=== PATIENT | female | born 1960 | race Caucasian/White ===

== ENCOUNTER 2017-02-24 09:06 | Inpatient (IN) | payer BC, MEDICARE ==
[~2017-02-24] VITALS: Ht 160 cm; Wt 74.8 kg
[2017-02-24] MEDS ORDERED: SODIUM CHLORIDE 0.9% 1,000 ML IV ONE (09:16)
[2017-02-24] MEDS ORDERED: SODIUM CHLORIDE 0.9% 1,000ML IVBOLUS ONE (09:30)
[2017-02-24] MEDS ORDERED: AMPICILLIN/SULBACTAM 3 GM in SODIUM CHLORIDE 0.9% 100 ML IVPB ONE (09:30)
[2017-02-24] MEDS ORDERED: MORPHINE SULFATE 4 MG/ML, 1ML IV PRN (09:30)
[2017-02-24] MEDS ORDERED: ONDANSETRON 2MG/ML, 2ML IVPush ONE (09:30)
[2017-02-24] MEDS ORDERED: SODIUM CHLORIDE FLUSH 10ML SYR IVF ONE (09:30)
[2017-02-24] MEDS ORDERED: TACR1CAP4 PO (09:32)
[2017-02-24] MEDS ORDERED: MYCO360T PO (09:32)
[2017-02-24] MEDS ORDERED: PRED5TAB PO (09:32)
[2017-02-24] MEDS ORDERED: ERGO2000 PO (09:32)
[2017-02-24] MEDS ORDERED: SIMV20TA PO (09:32)
[2017-02-24] MEDS ORDERED: PARI1CAP3 PO (09:32)
[2017-02-24] MEDS ORDERED: IMIP50TA PO (09:32)
[2017-02-24] MEDS ORDERED: GABA-827 PO (09:32)
[2017-02-24] MEDS ORDERED: DULO60CA7 PO (09:32)
[2017-02-24] MEDS ORDERED: ASCO100T5 PO (09:32)
[2017-02-24] MEDS ORDERED: ASPI-496 PO (09:32)
[2017-02-24 10:15] LABS: ASPARTATE AMINO TRANSFERASE 14 U/L (15-37); BLOOD UREA NITROGEN 58 mg/dL (7-18)
[2017-02-24] MEDS ORDERED: HYDROcodone/APAP 5/325 TABLET PO PRN (12:00)
[2017-02-24] MEDS ORDERED: VANCOMYCIN 1,300 MG in SODIUM CHLORIDE 0.9% 250 ML IV ONE (12:00)
[2017-02-24] MEDS ORDERED: ACETAMINOPHEN 325 MG TABLET PO PRN (12:00)
[2017-02-24] MEDS ORDERED: HEPARIN 5,000 UNITS/ML, 1ML SQ SCH (12:00)
[2017-02-24] MEDS ORDERED: BISACODYL 10 MG SUPP PR PRN (12:00)
[2017-02-24] MEDS ORDERED: DOCUSATE 100 MG CAPSULE PO PRN (12:00)
[2017-02-24] MEDS ORDERED: VANCOMYCIN PER PHARMACY MC ONE (12:00)
[2017-02-24] MEDS ORDERED: MORPHINE SULFATE 4 MG/ML, 1ML IVPush PRN (12:00)
[2017-02-24] MEDS ORDERED: ONDANSETRON 2MG/ML, 2ML IVP PRN (12:00)
[2017-02-24] MEDS ORDERED: POLYETHYLENE GLYCOL 17 GM PACKET PO PRN (12:00)
[2017-02-24] MEDS ORDERED: LABETALOL 5MG/ML, 20ML IV PRN ×2 (12:00→21:00)
[2017-02-24] MEDS ORDERED: SODIUM CHLORIDE 0.9% 1,000 ML IV SCH (13:00)
[2017-02-24 13:30] VITALS: BP 165/99
[2017-02-24] MEDS: TACROLIMUS 1 MG CAPSULE PO SCH (14:57)
[2017-02-24] MEDS: LACTATED RINGERS 1,000 ML IV SCH (15:01)
[2017-02-24] MEDS: ERGOCALCIFEROL 50,000 UNIT CAPSULE PO SCH (15:54)
[2017-02-24 17:58] LABS: PATH.CAST-FLAG NOT PRESENT; SPERM-FLAG NOT PRESENT; SRC-FLAG NOT PRESENT; XTAL-FLAG NOT PRESENT; YLC-FLAG NOT PRESENT
[2017-02-24 20:30] VITALS: BP 198/100
[2017-02-24] MEDS ORDERED: BUPIVACAINE/PF 0.5% ONE (20:48)
[2017-02-24] MEDS ORDERED: FENTANYL PF 100 MCG/2ML ONE (20:51)
[2017-02-24] MEDS ORDERED: PROPOFOL 10 MG/ML, 20ML ONE (20:52)
[2017-02-24] MEDS ORDERED: PROMETHAZINE 25 MG/ML, 1ML IV PRN (21:00)
[2017-02-24] MEDS ORDERED: EPHEDRINE 50 MG/ML, 1ML IVPush PRN (21:00)
[2017-02-24] MEDS ORDERED: OXYcodone 5 MG/5 ML ORAL.SOL UDC PO PRN (21:00)
[2017-02-24] MEDS ORDERED: DAPTOMYCIN 400 MG in SODIUM CHLORIDE 0.9% 100 ML IVPB SCH (21:00)
[2017-02-24] MEDS ORDERED: FENTANYL PF 100 MCG/2ML IV PRN (21:00)
[2017-02-24] MEDS ORDERED: SIMVASTATIN 20 MG TABLET PO SCH (21:00)
[2017-02-24] MEDS ORDERED: HYDROmorphone 1 MG/ML, 1ML IV PRN (21:00)
[2017-02-24] MEDS ORDERED: hydrALAzine 20 MG/ML, 1ML IV PRN (21:00)
[2017-02-24] MEDS ORDERED: HYDROcodone/APAP 7.5-325MG/15ML UDC PO PRN (21:00)
[2017-02-24] MEDS: SODIUM CHLORIDE FLUSH 10ML SYR IVF SCH (21:00)
[2017-02-24] MEDS ORDERED: ONDANSETRON 2MG/ML, 2ML IVPush PRN (21:00)
[2017-02-24] MEDS ORDERED: BUPIVACAINE/PF 0.5% INFIL ONE (21:09)
[2017-02-24] MEDS ORDERED: LABETALOL 5MG/ML, 20ML ONE (21:32)
[2017-02-24] MEDS: GABAPENTIN 300 MG CAPSULE PO SCH (23:35)
[2017-02-24] MEDS: PIPERACILLIN/TAZO/PMX 2.25GM 50 ML IV SCH (23:37)
[2017-02-25] VITALS (11 sets, daily range): BP systolic 122–157; BP diastolic 70–91
[2017-02-25] MEDS: TACROLIMUS 1 MG CAPSULE PO SCH ×2 (03:17→15:00)
[2017-02-25] MEDS: LACTATED RINGERS 1,000 ML IV SCH ×3 (03:18→20:30)
[2017-02-25] MEDS: PIPERACILLIN/TAZO/PMX 2.25GM 50 ML IV SCH ×4 (05:04→23:19)
[2017-02-25 05:05] LABS: BLOOD UREA NITROGEN 57 mg/dL (7-18)
[2017-02-25] MEDS: PARICALCITOL 1 MCG CAPSULE PO SCH (09:00)
[2017-02-25] MEDS: IMIPRAMINE 50 MG TABLET PO SCH (09:00)
[2017-02-25] MEDS: DULOXETINE 30 MG CAPSULE.DR PO SCH (09:45)
[2017-02-25] MEDS: ASPIRIN 81 MG TABLET EC PO SCH (09:46)
[2017-02-25] MEDS: SODIUM CHLORIDE FLUSH 10ML SYR IVF SCH ×2 (09:50→20:56)
[2017-02-25] MEDS: LOPERAMIDE 2 MG CAPSULE PO PRN (20:54)
[2017-02-25] MEDS: GABAPENTIN 300 MG CAPSULE PO SCH (20:55)
[2017-02-26 02:03] VITALS: BP 145/84
[2017-02-26] MEDS: TACROLIMUS 1 MG CAPSULE PO SCH ×2 (03:00→15:00)
[2017-02-26] MEDS: PIPERACILLIN/TAZO/PMX 2.25GM 50 ML IV SCH ×4 (04:37→22:54)
[2017-02-26 05:14] LABS: BLOOD UREA NITROGEN 50 mg/dL (7-18)
[2017-02-26 05:18] LABS: ASPARTATE AMINO TRANSFERASE 18 U/L (15-37)
[2017-02-26 07:40] VITALS: BP 147/90
[2017-02-26] MEDS: ASPIRIN 81 MG TABLET EC PO SCH (09:00)
[2017-02-26] MEDS: PARICALCITOL 1 MCG CAPSULE PO SCH (09:00)
[2017-02-26] MEDS: SODIUM CHLORIDE FLUSH 10ML SYR IVF SCH ×2 (09:31→21:00)
[2017-02-26] MEDS: SODIUM BICARBONATE 650 MG TABLET PO SCH ×3 (09:31→17:30)
[2017-02-26] MEDS: LACTATED RINGERS 1,000 ML IV SCH ×2 (09:31→21:00)
[2017-02-26] MEDS: DULOXETINE 30 MG CAPSULE.DR PO SCH (09:32)
[2017-02-26] MEDS ORDERED: FENTANYL PF 100 MCG/2ML ONE (10:27)
[2017-02-26] MEDS ORDERED: NALOXONE 1 MG/ML, 2ML ONE (10:27)
[2017-02-26] MEDS ORDERED: FLUMAZENIL 0.1 MG/1 ML, 5ML ONE (10:27)
[2017-02-26] MEDS ORDERED: MIDAZOLAM 1 MG/ML, 5ML ONE (10:27)
[2017-02-26 14:00] VITALS: BP 173/94
[2017-02-26] MEDS: LOPERAMIDE 2 MG CAPSULE PO PRN ×2 (14:08→22:54)
[2017-02-26 20:00] VITALS: BP 172/101
[2017-02-26] MEDS: IMIPRAMINE 50 MG TABLET PO SCH (21:00)
[2017-02-26] MEDS: GABAPENTIN 300 MG CAPSULE PO SCH (21:04)
[2017-02-27] MEDS: TACROLIMUS 1 MG CAPSULE PO SCH ×2 (03:46→14:28)
[2017-02-27] MEDS: PIPERACILLIN/TAZO/PMX 2.25GM 50 ML IV SCH ×2 (03:47→12:20)
[2017-02-27 03:56] VITALS: BP 155/99
[2017-02-27 05:20] LABS: BLOOD UREA NITROGEN 53 mg/dL (7-18)
[2017-02-27] MEDS: ASPIRIN 81 MG TABLET EC PO SCH (07:50)
[2017-02-27] MEDS: PARICALCITOL 1 MCG CAPSULE PO SCH (07:50)
[2017-02-27] MEDS: LACTATED RINGERS 1,000 ML IV SCH ×2 (07:51→17:15)
[2017-02-27] MEDS: SODIUM CHLORIDE FLUSH 10ML SYR IVF SCH ×2 (07:51→20:37)
[2017-02-27] MEDS: SODIUM BICARBONATE 650 MG TABLET PO SCH ×3 (07:51→17:15)
[2017-02-27] MEDS: DULOXETINE 30 MG CAPSULE.DR PO SCH (07:51)
[2017-02-27 08:16] VITALS: BP 165/95
[2017-02-27 12:52] VITALS: BP 170/109
[2017-02-27 19:15] VITALS: BP 174/105
[2017-02-27] MEDS ORDERED: LABETALOL 5MG/ML, 20ML IV PRN (20:15)
[2017-02-27 20:31] VITALS: BP 184/107
[2017-02-27] MEDS: GABAPENTIN 300 MG CAPSULE PO SCH (20:36)
[2017-02-27] MEDS: LABETALOL 20 MG/4 ML IV PRN ×2 (20:37→20:53)
[2017-02-27] MEDS: IMIPRAMINE 50 MG TABLET PO SCH (20:37)
[2017-02-27 22:23] VITALS: BP 161/93
[2017-02-28] MEDS: TACROLIMUS 1 MG CAPSULE PO SCH ×2 (03:00→15:00)
[2017-02-28 03:11] VITALS: BP 156/100
[2017-02-28] MEDS: LACTATED RINGERS 1,000 ML IV SCH ×2 (03:14→15:21)
[2017-02-28 04:43] LABS: BLOOD UREA NITROGEN 61 mg/dL (7-18)
[2017-02-28] MEDS: SODIUM BICARBONATE 650 MG TABLET PO SCH ×3 (08:00→16:36)
[2017-02-28 08:13] VITALS: BP 151/94
[2017-02-28] MEDS: ASPIRIN 81 MG TABLET EC PO SCH (09:00)
[2017-02-28] MEDS: IMIPRAMINE 50 MG TABLET PO SCH (09:00)
[2017-02-28] MEDS: PARICALCITOL 1 MCG CAPSULE PO SCH (09:00)
[2017-02-28] MEDS: DULOXETINE 30 MG CAPSULE.DR PO SCH (09:00)
[2017-02-28] MEDS: SODIUM CHLORIDE FLUSH 10ML SYR IVF SCH ×2 (09:00→21:26)
[2017-02-28] MEDS ORDERED: MIDAZOLAM 1 MG/ML, 5ML ONE (10:42)
[2017-02-28] MEDS ORDERED: FENTANYL PF 100 MCG/2ML ONE (10:43)
[2017-02-28 14:58] VITALS: BP 161/107
[2017-02-28] MEDS: DAPTOMYCIN 400 MG in SODIUM CHLORIDE 0.9% 100 ML IVPB SCH (16:36)
[2017-02-28] MEDS: LABETALOL 20 MG/4 ML IV PRN (16:36)
[2017-02-28 19:12] VITALS: BP 142/85
[2017-02-28] MEDS: GABAPENTIN 300 MG CAPSULE PO SCH (21:26)
[2017-03-01] MEDS: TACROLIMUS 1 MG CAPSULE PO SCH ×2 (03:00→15:00)
[2017-03-01] MEDS: LACTATED RINGERS 1,000 ML IV SCH ×3 (03:12→21:15)
[2017-03-01 03:15] VITALS: BP 159/99
[2017-03-01 04:59] LABS: BLOOD UREA NITROGEN 68 mg/dL (7-18)
[2017-03-01 05:02] LABS: ASPARTATE AMINO TRANSFERASE 10 U/L (15-37)
[2017-03-01] MEDS: PARICALCITOL 1 MCG CAPSULE PO SCH (09:00)
[2017-03-01] MEDS: IMIPRAMINE 50 MG TABLET PO SCH (09:00)
[2017-03-01] MEDS: SODIUM CHLORIDE FLUSH 10ML SYR IVF SCH ×2 (09:00→21:15)
[2017-03-01 09:10] VITALS: BP 154/90
[2017-03-01] MEDS: ASPIRIN 81 MG TABLET EC PO SCH (09:57)
[2017-03-01] MEDS: DULOXETINE 30 MG CAPSULE.DR PO SCH (09:57)
[2017-03-01] MEDS: SODIUM BICARBONATE 650 MG TABLET PO SCH ×2 (09:57→21:16)
[2017-03-01 14:09] VITALS: BP 148/91
[2017-03-01 19:44] VITALS: BP 173/101
[2017-03-01] MEDS: GABAPENTIN 300 MG CAPSULE PO SCH (21:16)
[2017-03-01 21:36] VITALS: BP 188/108
[2017-03-01] MEDS: LABETALOL 20 MG/4 ML IV PRN (21:37)
[2017-03-01 22:50] VITALS: BP 141/86
[2017-03-02 04:04] VITALS: BP 170/97
[2017-03-02] MEDS: TACROLIMUS 1 MG CAPSULE PO SCH ×2 (04:16→17:10)
[2017-03-02] MEDS: LACTATED RINGERS 1,000 ML IV SCH (06:13)
[2017-03-02] MEDS ORDERED: LACTATED RINGERS 1,000 ML IV SCH (07:00)
[2017-03-02 08:00] VITALS: BP 151/97
[2017-03-02] MEDS ORDERED: METOPROLOL SUCCINATE 25 MG TAB.ER.24H PO SCH (08:00)
[2017-03-02] MEDS ORDERED: LISINOPRIL 20 MG TABLET PO SCH (09:00)
[2017-03-02] MEDS: ASPIRIN 81 MG TABLET EC PO SCH (09:22)
[2017-03-02] MEDS: SODIUM CHLORIDE FLUSH 10ML SYR IVF SCH ×2 (09:22→22:11)
[2017-03-02] MEDS: DULOXETINE 30 MG CAPSULE.DR PO SCH (09:23)
[2017-03-02] MEDS: PARICALCITOL 1 MCG CAPSULE PO SCH (09:24)
[2017-03-02] MEDS: SODIUM BICARBONATE 650 MG TABLET PO SCH ×2 (09:24→22:10)
[2017-03-02] MEDS: IMIPRAMINE 50 MG TABLET PO SCH (09:26)
[2017-03-02] MEDS: AMLODIPINE 5 MG TABLET PO SCH (12:02)
[2017-03-02 14:12] VITALS: BP 165/105
[2017-03-02] MEDS: DAPTOMYCIN 400 MG in SODIUM CHLORIDE 0.9% 100 ML IVPB SCH (15:24)
[2017-03-02 19:51] VITALS: BP 153/99
[2017-03-02] MEDS: GABAPENTIN 300 MG CAPSULE PO SCH (22:11)
[2017-03-03 01:57] VITALS: BP 155/99
[2017-03-03] MEDS: TACROLIMUS 1 MG CAPSULE PO SCH ×2 (05:00→21:00)
[2017-03-03 05:13] LABS: BLOOD UREA NITROGEN 69 mg/dL (7-18); C-REACTIVE PROTEIN, QUANT 0.35 mg/dL (0.02-0.49)
[2017-03-03 05:16] LABS: ASPARTATE AMINO TRANSFERASE 12 U/L (15-37)
[2017-03-03 06:44] VITALS: BP 156/94
[2017-03-03] MEDS: PARICALCITOL 1 MCG CAPSULE PO SCH (09:00)
[2017-03-03] MEDS: AMLODIPINE 5 MG TABLET PO SCH (09:36)
[2017-03-03] MEDS: SODIUM BICARBONATE 650 MG TABLET PO SCH ×2 (09:36→21:59)
[2017-03-03] MEDS: DULOXETINE 30 MG CAPSULE.DR PO SCH (09:37)
[2017-03-03] MEDS: ASPIRIN 81 MG TABLET EC PO SCH (09:37)
[2017-03-03] MEDS: ERGOCALCIFEROL 50,000 UNIT CAPSULE PO SCH (09:42)
[2017-03-03] MEDS: SODIUM CHLORIDE FLUSH 10ML SYR IVF SCH ×2 (09:43→22:00)
[2017-03-03 13:24] VITALS: BP 168/100
[2017-03-03 20:30] VITALS: BP 156/94
[2017-03-03 21:00] LABS: PATH.CAST-FLAG NOT PRESENT; SPERM-FLAG NOT PRESENT; SRC-FLAG NOT PRESENT; XTAL-FLAG NOT PRESENT; YLC-FLAG NOT PRESENT
[2017-03-03] MEDS: IMIPRAMINE 50 MG TABLET PO SCH (21:00)
[2017-03-03] MEDS: GABAPENTIN 300 MG CAPSULE PO SCH (21:59)
[2017-03-04 03:19] VITALS: BP 148/99
[2017-03-04 07:57] VITALS: BP 146/90
[2017-03-04 08:09] LABS: BLOOD UREA NITROGEN 79 mg/dL (7-18)
[2017-03-04] MEDS: AMLODIPINE 5 MG TABLET PO SCH (09:21)
[2017-03-04] MEDS: DULOXETINE 30 MG CAPSULE.DR PO SCH (09:22)
[2017-03-04] MEDS: SODIUM BICARBONATE 650 MG TABLET PO SCH ×2 (09:22→23:05)
[2017-03-04] MEDS: ASPIRIN 81 MG TABLET EC PO SCH (09:22)
[2017-03-04] MEDS: PARICALCITOL 1 MCG CAPSULE PO SCH (09:23)
[2017-03-04] MEDS: SODIUM CHLORIDE FLUSH 10ML SYR IVF SCH ×2 (09:23→23:07)
[2017-03-04] MEDS: TACROLIMUS 1 MG CAPSULE PO SCH ×2 (09:23→23:39)
[2017-03-04 13:12] VITALS: BP 155/94
[2017-03-04] MEDS ORDERED: ALBUMIN HUMAN 5% 3,000 ML IV ONE (13:30)
[2017-03-04] MEDS ORDERED: CALCIUM GLUCONATE 4.6 MEQ/10 ML IVPush ONE (13:30)
[2017-03-04] MEDS ORDERED: IMMUNE GLOBULIN IV ONE (14:00)
[2017-03-04 19:36] VITALS: BP 139/85
[2017-03-04] MEDS: DAPTOMYCIN 400 MG in SODIUM CHLORIDE 0.9% 100 ML IVPB SCH (20:11)
[2017-03-04] MEDS: GABAPENTIN 300 MG CAPSULE PO SCH (23:05)
[2017-03-04] MEDS: IMIPRAMINE 50 MG TABLET PO SCH (23:06)
[2017-03-05 02:48] VITALS: BP 146/89
[2017-03-05 07:31] VITALS: BP 162/100
[2017-03-05] MEDS: DULOXETINE 30 MG CAPSULE.DR PO SCH (08:29)
[2017-03-05] MEDS: ASPIRIN 81 MG TABLET EC PO SCH (08:30)
[2017-03-05] MEDS: AMLODIPINE 5 MG TABLET PO SCH (08:30)
[2017-03-05] MEDS: TACROLIMUS 1 MG CAPSULE PO SCH ×2 (08:31→21:28)
[2017-03-05] MEDS: SODIUM BICARBONATE 650 MG TABLET PO SCH ×2 (08:31→21:29)
[2017-03-05] MEDS: IMIPRAMINE 50 MG TABLET PO SCH (08:31)
[2017-03-05] MEDS: PARICALCITOL 1 MCG CAPSULE PO SCH (08:32)
[2017-03-05] MEDS: SODIUM CHLORIDE FLUSH 10ML SYR IVF SCH ×2 (08:35→21:00)
[2017-03-05 13:46] VITALS: BP 132/75
[2017-03-05] MEDS: GABAPENTIN 300 MG CAPSULE PO SCH (21:28)
[2017-03-05 22:43] VITALS: BP 152/90
[2017-03-06] VITALS (12 sets, daily range): BP systolic 145–158; BP diastolic 81–96
[2017-03-06 05:43] LABS: BLOOD UREA NITROGEN 75 mg/dL (7-18)
[2017-03-06] MEDS: AMLODIPINE 5 MG TABLET PO SCH (09:09)
[2017-03-06] MEDS: DULOXETINE 30 MG CAPSULE.DR PO SCH (09:09)
[2017-03-06] MEDS: TACROLIMUS 1 MG CAPSULE PO SCH ×2 (09:09→21:52)
[2017-03-06] MEDS: ASPIRIN 81 MG TABLET EC PO SCH (09:09)
[2017-03-06] MEDS: SODIUM BICARBONATE 650 MG TABLET PO SCH ×2 (09:09→22:00)
[2017-03-06] MEDS: PARICALCITOL 1 MCG CAPSULE PO SCH (09:11)
[2017-03-06] MEDS: SODIUM CHLORIDE FLUSH 10ML SYR IVF SCH ×2 (09:11→21:00)
[2017-03-06] MEDS ORDERED: ALBUMIN HUMAN 5% 2,000 ML IV ONE (09:30)
[2017-03-06] MEDS ORDERED: CALCIUM GLUCONATE 4.6 MEQ/10 ML IVPush ONE (09:30)
[2017-03-06] MEDS ORDERED: IMMUNE GLOBULIN IV ONE (10:30)
[2017-03-06] MEDS ORDERED: IMIPRAMINE 50 MG TABLET PO SCH (21:00)
[2017-03-06] MEDS: GABAPENTIN 300 MG CAPSULE PO SCH (21:53)
[2017-03-06] MEDS: IMIPRAMINE 25 MG TABLET PO SCH (22:01)
[2017-03-07 01:03] VITALS: BP 154/86
[2017-03-07 04:40] LABS: BLOOD UREA NITROGEN 73 mg/dL (7-18)
[2017-03-07 07:45] VITALS: BP 145/86
[2017-03-07] MEDS: TACROLIMUS 1 MG CAPSULE PO SCH ×2 (11:09→22:46)
[2017-03-07] MEDS: SODIUM BICARBONATE 650 MG TABLET PO SCH ×2 (11:09→22:44)
[2017-03-07] MEDS: ASPIRIN 81 MG TABLET EC PO SCH (11:09)
[2017-03-07] MEDS: AMLODIPINE 5 MG TABLET PO SCH (11:09)
[2017-03-07] MEDS: DULOXETINE 30 MG CAPSULE.DR PO SCH (11:09)
[2017-03-07] MEDS: PARICALCITOL 1 MCG CAPSULE PO SCH (11:09)
[2017-03-07] MEDS: SODIUM CHLORIDE FLUSH 10ML SYR IVF SCH ×2 (11:10→21:00)
[2017-03-07 15:36] VITALS: BP 160/87
[2017-03-07 19:39] VITALS: BP 155/90
[2017-03-07] MEDS: GABAPENTIN 300 MG CAPSULE PO SCH (22:45)
[2017-03-07] MEDS: IMIPRAMINE 25 MG TABLET PO SCH (22:47)
[2017-03-08] VITALS (11 sets, daily range): BP systolic 118–162; BP diastolic 77–170
[2017-03-08 06:19] LABS: BLOOD UREA NITROGEN 76 mg/dL (7-18)
[2017-03-08] MEDS: ASPIRIN 81 MG TABLET EC PO SCH (08:42)
[2017-03-08] MEDS: DULOXETINE 30 MG CAPSULE.DR PO SCH (08:42)
[2017-03-08] MEDS: SODIUM BICARBONATE 650 MG TABLET PO SCH ×2 (08:42→20:28)
[2017-03-08] MEDS: AMLODIPINE 5 MG TABLET PO SCH (08:42)
[2017-03-08] MEDS: PARICALCITOL 1 MCG CAPSULE PO SCH (08:43)
[2017-03-08] MEDS: TACROLIMUS 1 MG CAPSULE PO SCH ×2 (08:43→20:28)
[2017-03-08] MEDS: SODIUM CHLORIDE FLUSH 10ML SYR IVF SCH ×2 (08:44→20:38)
[2017-03-08] MEDS ORDERED: ALBUMIN HUMAN 5% 2,000 ML IV ONE (12:30)
[2017-03-08] MEDS ORDERED: CALCIUM GLUCONATE 4.6 MEQ/10 ML IVPush ONE (12:30)
[2017-03-08] MEDS ORDERED: SODI650T PO (14:13)
[2017-03-08] MEDS ORDERED: AMLO5TAB2 PO (14:13)
[2017-03-08] MEDS ORDERED: IMMUNE GLOBULIN IV ONE ×2 (15:30→16:30)
[2017-03-08] MEDS: GABAPENTIN 300 MG CAPSULE PO SCH (20:28)
[2017-03-08] MEDS: IMIPRAMINE 25 MG TABLET PO SCH (20:38)
[2017-03-09 00:06] LABS: ABSOLUTE CD 4 HELPER 333 /uL (359-1519); HEMATOCRIT 27.3 % (34.0-46.6); HEMOGLOBIN 9.1 g/dL (11.1-15.9); IMMATURE GRANULOCYTES 0 % (.); MCH 29.2 pg (26.6-33.0); MCHC 33.3 g/dL (31.5-35.7); MCV 88 fL (79-97); MONOCYTES 5 % (.); NEUTROPHILS 85 % (.); PLATELETS 210 x10E3/uL (150-379); RBC 3.12 x10E6/uL (3.77-5.28); RDW 16.2 % (12.3-15.4); WBC 9.4 x10E3/uL (3.4-10.8)
== END 2017-03-08 23:29 | disposition home or self-care (01) | DRG 617 ==
LOC: ED 11:12 → EDIP 12:00 → 3NW 12:53
PROVIDERS: ADMIT Hospitalist
PROC: 0Y6Q0Z2 Detachment at Left 1st Toe, Mid, Open Approach (ICD-10-PCS; principal; 2017-02-24 20:15)
PROC: 0TB13ZX Excision of Left Kidney, Percutaneous Approach, Diagnostic (ICD-10-PCS; 2017-02-26)
PROC: 0TB13ZX Excision of Left Kidney, Percutaneous Approach, Diagnostic (ICD-10-PCS; 2017-02-28)
PROC: 02HV33Z Insertion of Infusion Device into Superior Vena Cava, Percutaneous Approach (ICD-10-PCS; 2017-03-04)
PROC: B548ZZA Ultrasonography of Superior Vena Cava, Guidance (ICD-10-PCS; 2017-03-04)
PROC: 30233L1 Transfusion of Nonautologous Fresh Plasma into Peripheral Vein, Percutaneous Approach (ICD-10-PCS; 2017-03-06)
PROC: 30233L1 Transfusion of Nonautologous Fresh Plasma into Peripheral Vein, Percutaneous Approach (ICD-10-PCS; 2017-03-06)
PROC: 30233K1 Transfusion of Nonautologous Frozen Plasma into Peripheral Vein, Percutaneous Approach (ICD-10-PCS; 2017-03-08)
PROC: 30233K1 Transfusion of Nonautologous Frozen Plasma into Peripheral Vein, Percutaneous Approach (ICD-10-PCS; 2017-03-08)
PROC: 6A551Z3 Pheresis of Plasma, Multiple (ICD-10-PCS; 2017-03-08)
DX: E11.621 Type 2 diabetes mellitus with foot ulcer (principal); M86.172 Other acute osteomyelitis, left ankle and foot; E44.0 Moderate protein-calorie malnutrition; Z94.0 Kidney transplant status; Z94.83 Pancreas transplant status; N39.0 Urinary tract infection, site not specified; E87.2 Acidosis; T86.19 Other complication of kidney transplant; N13.30 Unspecified hydronephrosis; N17.9 Acute kidney failure, unspecified; E11.69 Type 2 diabetes mellitus with other specified complication; Z66 Do not resuscitate; K31.84 Gastroparesis; B95.62 Methicillin resistant Staphylococcus aureus infection as the cause of diseases classified elsewhere; N18.2 Chronic kidney disease, stage 2 (mild); K59.09 Other constipation; D63.1 Anemia in chronic kidney disease; D72.829 Elevated white blood cell count, unspecified; E11.22 Type 2 diabetes mellitus with diabetic chronic kidney disease; E11.43 Type 2 diabetes mellitus with diabetic autonomic (poly)neuropathy; E78.5 Hyperlipidemia, unspecified; F32.9 Major depressive disorder, single episode, unspecified; L08.9 Local infection of the skin and subcutaneous tissue, unspecified; R80.9 Proteinuria, unspecified; I12.9 Hypertensive chronic kidney disease with stage 1 through stage 4 chronic kidney disease, or unspecified chronic kidney disease; L97.519 Non-pressure chronic ulcer of other part of right foot with unspecified severity; L97.529 Non-pressure chronic ulcer of other part of left foot with unspecified severity; Y83.0 Surgical operation with transplant of whole organ as the cause of abnormal reaction of the patient, or of later complication, without mention of misadventure at the time of the procedure; R03.0 Elevated blood-pressure reading, without diagnosis of hypertension; Z87.440 Personal history of urinary (tract) infections; Z99.2 Dependence on renal dialysis; Z90.49 Acquired absence of other specified parts of digestive tract; Z98.42 Cataract extraction status, left eye; Z98.41 Cataract extraction status, right eye; Z80.9 Family history of malignant neoplasm, unspecified; Z68.29 Body mass index [BMI] 29.0-29.9, adult; Z88.8 Allergy status to other drugs, medicaments and biological substances
CPT/HCPCS: 36415; 36514; 36556; 50200; 70450; 71010; 76776; 76937; 77001; 77012; 80048; 80053; 80069; 80197; 81001; 82150; 82436; 82550; 82570; 83605; 83690; 83735; 83880; 84100; 84133; 84145; 84156; 84300; 85025; 85384; 85610; 85651; 85730; 86140; 86361; 86850; 86900; 87040; 87070; 87075; 87077; 87086; 87106; 87186; 87205; 87324; 88300; 93005; 93306; 93976; 96365; 96366; 96375; 99156; 99157; J0295; J0878; J1459; J2250; J2405; J2543; J2704; J2930; J3010; J3370; J3490; J7507; J7518; P9045; C1751; J0610; J1642; J2310; J7030; J7050; J7120; J7512; P9017

== ENCOUNTER 2017-03-11 17:46 | Inpatient (IN) | payer BC, MEDICARE ==
[~2017-03-11] VITALS: Ht 160 cm; Wt 71.8 kg
[~2017-03-11 17:46] MED LIST: AMLO5TAB2 PO; ASCO100T5 PO; ASPI-496 PO; DULO60CA7 PO; ERGO2000 PO; GABA-827 PO; IMIP50TA PO; MYCO360T PO; PARI1CAP3 PO; PRED5TAB PO; SIMV20TA PO; SODI650T PO; TACR1CAP4 PO
[2017-03-11 18:44] LABS: BLOOD UREA NITROGEN 55 mg/dL (7-18)
[2017-03-11 18:50] LABS: IS PT STATUS REG ER OR PRE ER? YES
[2017-03-11 18:53] LABS: ASPARTATE AMINO TRANSFERASE 25 U/L (15-37)
[2017-03-11 21:10] LABS: PATH.CAST-FLAG NOT PRESENT; SPERM-FLAG NOT PRESENT; SRC-FLAG NOT PRESENT; XTAL-FLAG NOT PRESENT; YLC-FLAG NOT PRESENT
[2017-03-11] MEDS ORDERED: ONDANSETRON 2MG/ML, 2ML IVPush ONE (21:30)
[2017-03-11] MEDS ORDERED: MORPHINE SULFATE 4 MG/ML, 1ML IVPush PRN (21:30)
[2017-03-11] MEDS ORDERED: DAPTOMYCIN 440 MG in SODIUM CHLORIDE 0.9% 100 ML IVPB ONE (21:30)
[2017-03-11] MEDS ORDERED: AMLODIPINE 5 MG TABLET PO ONE (21:30)
[2017-03-11] MEDS ORDERED: PIPERACILLIN/TAZO/PMX 2.25GM 50 ML IV ONE (21:30)
[2017-03-11] MEDS ORDERED: MORPHINE SULFATE 4 MG/ML, 1ML ONE (21:39)
[2017-03-11] MEDS ORDERED: PIPERACILLIN/TAZO/PMX 3.375GM 0 ML ONE (21:39)
[2017-03-11] MEDS ORDERED: ONDANSETRON 2MG/ML, 2ML ONE (21:39)
[2017-03-11] MEDS ORDERED: SODIUM CHLORIDE FLUSH 10ML SYR IVF PRN (22:30)
[2017-03-11] MEDS ORDERED: TACROLIMUS 1 MG CAPSULE PO SCH (23:00)
[2017-03-12] MEDS ORDERED: ACETAMINOPHEN 325 MG TABLET PO PRN
[2017-03-12 00:17] VITALS: BP 144/87
[2017-03-12] MEDS ORDERED: MAGNESIUM SULFATE PMX 2GM/50ML 50 ML IV ONE (00:30)
[2017-03-12 00:32] VITALS: BP 138/83
[2017-03-12] MEDS: TACROLIMUS 1 MG CAPSULE PO SCH ×2 (01:07→11:47)
[2017-03-12] MEDS: HEPARIN 5,000 UNITS/ML, 1ML SQ SCH ×3 (02:15→16:06)
[2017-03-12] MEDS: SIMVASTATIN 20 MG TABLET PO SCH ×2 (02:15→22:01)
[2017-03-12] MEDS: SODIUM BICARBONATE 650 MG TABLET PO SCH ×3 (02:57→22:00)
[2017-03-12] MEDS: GABAPENTIN 300 MG CAPSULE PO SCH ×2 (02:58→22:00)
[2017-03-12] MEDS ORDERED: PIPERACILLIN/TAZO/PMX 2.25GM 50 ML IV SCH (03:30)
[2017-03-12] MEDS: INSULIN REGULAR 100 UNITS/ML, 3ML VIAL SQ-INSULIN SCH ×5 (06:01→22:19)
[2017-03-12 06:27] LABS: BLOOD UREA NITROGEN 50 mg/dL (7-18)
[2017-03-12 08:01] VITALS: BP 145/79
[2017-03-12] MEDS ORDERED: ERGOCALCIFEROL 50,000 UNIT CAPSULE PO SCH (09:00)
[2017-03-12] MEDS: DULOXETINE 30 MG CAPSULE.DR PO SCH (09:13)
[2017-03-12] MEDS: ASPIRIN 81 MG TABLET EC PO SCH (09:14)
[2017-03-12] MEDS: AMLODIPINE 5 MG TABLET PO SCH (09:14)
[2017-03-12] MEDS: IMIPRAMINE 25 MG TABLET PO SCH ×2 (09:15→22:01)
[2017-03-12] MEDS: PARICALCITOL 1 MCG CAPSULE PO SCH (09:15)
[2017-03-12] MEDS: MUPIROCIN OINT 2%, 22GM TP SCH ×3 (12:05→22:19)
[2017-03-12 14:21] VITALS: BP 118/70
[2017-03-12 19:51] VITALS: BP 129/80
[2017-03-12] MEDS ORDERED: DAPTOMYCIN 440 MG in SODIUM CHLORIDE 0.9% 100 ML IVPB SCH (21:30)
[2017-03-13] MEDS: TACROLIMUS 1 MG CAPSULE PO SCH ×2 (00:15→12:24)
[2017-03-13] MEDS: HEPARIN 5,000 UNITS/ML, 1ML SQ SCH ×3 (00:15→16:05)
[2017-03-13 02:32] VITALS: BP 149/84
[2017-03-13] MEDS: INSULIN REGULAR 100 UNITS/ML, 3ML VIAL SQ-INSULIN SCH ×4 (06:14→21:00)
[2017-03-13 06:52] VITALS: BP 134/81
[2017-03-13] MEDS: PARICALCITOL 1 MCG CAPSULE PO SCH (08:25)
[2017-03-13] MEDS: AMLODIPINE 5 MG TABLET PO SCH (08:25)
[2017-03-13] MEDS: SODIUM BICARBONATE 650 MG TABLET PO SCH ×2 (08:25→21:53)
[2017-03-13] MEDS: MUPIROCIN OINT 2%, 22GM TP SCH ×3 (08:26→21:56)
[2017-03-13] MEDS: ASPIRIN 81 MG TABLET EC PO SCH (08:26)
[2017-03-13] MEDS: DULOXETINE 30 MG CAPSULE.DR PO SCH (08:26)
[2017-03-13 13:57] VITALS: BP 135/80
[2017-03-13 19:55] VITALS: BP 163/94
[2017-03-13] MEDS: IMIPRAMINE 25 MG TABLET PO SCH (21:52)
[2017-03-13] MEDS: GABAPENTIN 300 MG CAPSULE PO SCH (21:53)
[2017-03-13] MEDS: SIMVASTATIN 20 MG TABLET PO SCH (21:53)
[2017-03-14] MEDS: TACROLIMUS 1 MG CAPSULE PO SCH ×2 (00:38→13:07)
[2017-03-14] MEDS: HEPARIN 5,000 UNITS/ML, 1ML SQ SCH ×2 (00:38→10:09)
[2017-03-14 02:28] VITALS: BP 142/82
[2017-03-14 05:42] LABS: BLOOD UREA NITROGEN 44 mg/dL (7-18)
[2017-03-14 06:35] VITALS: BP 144/86
[2017-03-14] MEDS: INSULIN REGULAR 100 UNITS/ML, 3ML VIAL SQ-INSULIN SCH ×2 (07:00→11:00)
[2017-03-14] MEDS: IMIPRAMINE 25 MG TABLET PO SCH (09:00)
[2017-03-14] MEDS ORDERED: FERR325T20 PO (09:09)
[2017-03-14] MEDS ORDERED: Mupirocin TP (09:09)
[2017-03-14] MEDS ORDERED: SODI650T PO (09:09)
[2017-03-14 09:59] VITALS: BP 148/85
[2017-03-14] MEDS: ASPIRIN 81 MG TABLET EC PO SCH (10:08)
[2017-03-14] MEDS: PARICALCITOL 1 MCG CAPSULE PO SCH (10:08)
[2017-03-14] MEDS: SODIUM BICARBONATE 650 MG TABLET PO SCH (10:08)
[2017-03-14] MEDS: AMLODIPINE 5 MG TABLET PO SCH (10:08)
[2017-03-14] MEDS: MUPIROCIN OINT 2%, 22GM TP SCH (10:09)
[2017-03-14] MEDS: DULOXETINE 30 MG CAPSULE.DR PO SCH (10:09)
[2017-03-14 10:17] VITALS: BP 154/92
[2017-03-14] MEDS ORDERED: PNEUMOCOCCAL 23 VACCINE IM-VACC ONE (12:30)
[2017-03-14 12:55] VITALS: BP 146/90
[2017-03-14 14:10] VITALS: BP 155/91
== END 2017-03-14 15:49 | disposition home or self-care (01) | DRG 699 ==
LOC: ED 21:09 → EDIP 22:03 → 4NOR 23:50
PROVIDERS: ADMIT Internal Medicine; ATTEND Internal Medicine
PROC: 30233N1 Transfusion of Nonautologous Red Blood Cells into Peripheral Vein, Percutaneous Approach (ICD-10-PCS; principal; 2017-03-14)
DX: E11.22 Type 2 diabetes mellitus with diabetic chronic kidney disease (principal); E44.0 Moderate protein-calorie malnutrition; N39.0 Urinary tract infection, site not specified; Z94.0 Kidney transplant status; Z94.83 Pancreas transplant status; M86.472 Chronic osteomyelitis with draining sinus, left ankle and foot; D84.8 Other specified immunodeficiencies; I12.0 Hypertensive chronic kidney disease with stage 5 chronic kidney disease or end stage renal disease; N18.6 End stage renal disease; N17.9 Acute kidney failure, unspecified; E11.69 Type 2 diabetes mellitus with other specified complication; L03.032 Cellulitis of left toe; E83.42 Hypomagnesemia; L08.89 Other specified local infections of the skin and subcutaneous tissue; E78.5 Hyperlipidemia, unspecified; F32.9 Major depressive disorder, single episode, unspecified; Z68.28 Body mass index [BMI] 28.0-28.9, adult; Z89.412 Acquired absence of left great toe; Z88.1 Allergy status to other antibiotic agents; Z90.49 Acquired absence of other specified parts of digestive tract; Z80.9 Family history of malignant neoplasm, unspecified; B95.61 Methicillin susceptible Staphylococcus aureus infection as the cause of diseases classified elsewhere; E11.628 Type 2 diabetes mellitus with other skin complications; D63.1 Anemia in chronic kidney disease
CPT/HCPCS: 36415; 71010; 80048; 80053; 80197; 81001; 82728; 82962; 83540; 83550; 83735; 83880; 84100; 84484; 85025; 85045; 85651; 86140; 86850; 86900; 86923; 87086; 90732; 93005; 96365; 96368; 96375; J0878; J1644; J1815; J2405; J2543; J7507; J7518; J3475; J7512; P9016

== ENCOUNTER 2017-04-01 04:30 | Inpatient (IN) | payer BC, MEDICARE ==
[~2017-04-01] VITALS: Ht 160 cm; Wt 63.2 kg
[~2017-04-01 04:30] MED LIST changes: +FERR325T20 PO; +Mupirocin TP
[2017-04-01] MEDS ORDERED: SULF1TAB24 PO (05:17)
[2017-04-01] MEDS ORDERED: MORPHINE SULFATE 4 MG/ML, 1ML ONE (05:22)
[2017-04-01] MEDS ORDERED: ASPIRIN 81 MG TABLET CHEW ONE (05:23)
[2017-04-01] MEDS ORDERED: ONDANSETRON 2MG/ML, 2ML ONE (05:23)
[2017-04-01] MEDS ORDERED: MORPHINE SULFATE 4 MG/ML, 1ML IVPush PRN (05:30)
[2017-04-01] MEDS ORDERED: ASPIRIN 81 MG TABLET CHEW PO ONE (05:30)
[2017-04-01] MEDS ORDERED: SODIUM CHLORIDE FLUSH 10ML SYR IVF ONE (05:30)
[2017-04-01] MEDS ORDERED: ONDANSETRON 2MG/ML, 2ML IVPush ONE (05:30)
[2017-04-01 05:33] LABS: BLOOD UREA NITROGEN 34 mg/dL (7-18)
[2017-04-01 05:46] LABS: IS PT STATUS REG ER OR PRE ER? YES
[2017-04-01] MEDS ORDERED: SODIUM CHLORIDE 0.9% 1,000ML IVBOLUS ONE (06:30)
[2017-04-01] MEDS ORDERED: ERGOCALCIFEROL 50000 UNIT PO SCH (08:00)
[2017-04-01] MEDS ORDERED: LABETALOL 5MG/ML, 20ML IVPush PRN (08:00)
[2017-04-01] MEDS ORDERED: GUAIFENESIN/DM 200-20MG, 10ML UDC PO PRN (08:00)
[2017-04-01] MEDS ORDERED: POLYETHYLENE GLYCOL 17 GM PACKET PO PRN (08:00)
[2017-04-01 08:18] LABS: IS PT STATUS REG ER OR PRE ER? NO
[2017-04-01] MEDS ORDERED: IMIPRAMINE 25 MG TABLET PO SCH (09:00)
[2017-04-01] MEDS: PARICALCITOL 1 MCG CAPSULE PO SCH (09:15)
[2017-04-01] MEDS: SODIUM BICARBONATE 650 MG TABLET PO SCH ×2 (09:16→20:39)
[2017-04-01] MEDS: SENNA/DOCUSATE TABLET PO SCH (09:16)
[2017-04-01] MEDS: DULOXETINE 30 MG CAPSULE.DR PO SCH (09:17)
[2017-04-01] MEDS: FERROUS SULFATE 325 MG TABLET PO SCH ×2 (09:17→20:40)
[2017-04-01] MEDS: ASPIRIN 325 MG TABLET EC PO SCH (09:17)
[2017-04-01] MEDS: AMLODIPINE 5 MG TABLET PO SCH (09:17)
[2017-04-01] MEDS: HEPARIN 5,000 UNITS/ML, 1ML SQ SCH ×2 (09:18→16:32)
[2017-04-01 10:00] VITALS: BP 130/76
[2017-04-01] MEDS: HYDROcodone/APAP 5/325 TABLET PO PRN ×2 (10:53→22:30)
[2017-04-01] MEDS: TACROLIMUS 1 MG CAPSULE PO SCH ×2 (10:53→20:39)
[2017-04-01 13:05] VITALS: BP 149/88
[2017-04-01 13:38] LABS: IS PT STATUS REG ER OR PRE ER? NO
[2017-04-01] MEDS: IMIPRAMINE 50 MG TABLET PO SCH (16:32)
[2017-04-01 19:05] VITALS: BP 130/82
[2017-04-01] MEDS ORDERED: GABAPENTIN 300 MG CAPSULE PO SCH (21:00)
[2017-04-01] MEDS ORDERED: SIMVASTATIN 20 MG TABLET PO SCH (21:00)
[2017-04-02] MEDS ORDERED: morphine SULFATE 10 MG/ML, 1ML IVPush ONE (00:30)
[2017-04-02 02:42] VITALS: BP 126/77
[2017-04-02 05:46] LABS: BLOOD UREA NITROGEN 37 mg/dL (7-18)
[2017-04-02 06:04] LABS: ASPARTATE AMINO TRANSFERASE < 3 U/L (15-37)
[2017-04-02 07:55] VITALS: BP 149/88
[2017-04-02] MEDS ORDERED: REGADENOSON 0.4 MG/5 ML SYRINGE ONE (08:20)
[2017-04-02] MEDS: HEPARIN 5,000 UNITS/ML, 1ML SQ SCH ×3 (08:36→16:00)
[2017-04-02] MEDS: SENNA/DOCUSATE TABLET PO SCH (08:37)
[2017-04-02] MEDS: SODIUM BICARBONATE 650 MG TABLET PO SCH (08:37)
[2017-04-02 08:40] VITALS: BP 129/81
[2017-04-02] MEDS: AMLODIPINE 5 MG TABLET PO SCH (08:41)
[2017-04-02] MEDS: ASPIRIN 325 MG TABLET EC PO SCH (08:41)
[2017-04-02] MEDS: DULOXETINE 30 MG CAPSULE.DR PO SCH (08:42)
[2017-04-02] MEDS: TACROLIMUS 1 MG CAPSULE PO SCH (08:43)
[2017-04-02] MEDS: PARICALCITOL 1 MCG CAPSULE PO SCH (08:43)
[2017-04-02] MEDS: FERROUS SULFATE 325 MG TABLET PO SCH (08:43)
[2017-04-02 09:45] LABS: PATH.CAST-FLAG NOT PRESENT; SPERM-FLAG NOT PRESENT; SRC-FLAG NOT PRESENT; XTAL-FLAG NOT PRESENT; YLC-FLAG NOT PRESENT
[2017-04-02 12:34] VITALS: BP 150/80
[2017-04-02] MEDS: IMIPRAMINE 50 MG TABLET PO SCH (17:22)
[2017-04-02 19:13] VITALS: BP 149/88
[2017-04-04 12:06] LABS: HGB A1C 6.4 %Hb (.)
== END 2017-04-02 20:07 | disposition home or self-care (01) | DRG 683 ==
LOC: ED 05:00 → EDIP 06:30 → 5SO 07:59
PROVIDERS: ADMIT Internal Medicine; ATTEND Internal Medicine
PROC: 0T9B70Z Drainage of Bladder with Drainage Device, Via Natural or Artificial Opening (ICD-10-PCS; principal; 2017-04-02)
DX: I12.9 Hypertensive chronic kidney disease with stage 1 through stage 4 chronic kidney disease, or unspecified chronic kidney disease (principal); E87.2 Acidosis; Z94.83 Pancreas transplant status; Z94.0 Kidney transplant status; R07.89 Other chest pain; N18.3 Chronic kidney disease, stage 3 (moderate); Z66 Do not resuscitate; E11.40 Type 2 diabetes mellitus with diabetic neuropathy, unspecified; E11.22 Type 2 diabetes mellitus with diabetic chronic kidney disease; D63.1 Anemia in chronic kidney disease; E87.6 Hypokalemia; E11.65 Type 2 diabetes mellitus with hyperglycemia; Z89.412 Acquired absence of left great toe; Z79.4 Long term (current) use of insulin; Z79.899 Other long term (current) drug therapy; Z79.82 Long term (current) use of aspirin; Z90.49 Acquired absence of other specified parts of digestive tract; Z88.8 Allergy status to other drugs, medicaments and biological substances; Z98.42 Cataract extraction status, left eye; Z86.73 Personal history of transient ischemic attack (TIA), and cerebral infarction without residual deficits; Z98.41 Cataract extraction status, right eye; Z88.1 Allergy status to other antibiotic agents
CPT/HCPCS: 36415; 71010; 78452; 80048; 80053; 80061; 80197; 81001; 82040; 83036; 83690; 83735; 83880; 84378; 84439; 84443; 84484; 85025; 85379; 93005; 93017; 93306; 96361; 96374; 96375; J1644; J2405; J2785; J7507; J7518; A9502; C9898; J2270; J7512